=== PATIENT | female | born 1990 | race Caucasian/White ===

== ENCOUNTER 2023-11-28 14:26 | Outpatient (CLI) | payer OTHER ==
--- NOTE | 2023-11-28 17:25 | Ultrasound Report ---
PROCEDURE: Pelvic w/Transvaginal INDICATIONS: POLYCYSITIC OVARIAN SYN TECHNIQUE: Real-time scanning was performed of the pelvic organs, with image documentation. Additional endovagi nal scanning was necessary due to incomplete visualization of the adnexal and endometrial structures by transabdominal scanning. COMPARISON: None. FINDINGS: Uterus: Uterus is anteverted and normal in size at 11.3 x 4.9 x 6.6 cm. The myometrium is homogeneo us. The endometrium measures 21 mm in combined thickness. Ovaries: The right ovary measures 4.5 x 1.8 x 3.2 cm, with a calculated ovarian volume of 13 cc. Th e left ovary measures 4.3 x 2.2 x 2.0 cm, with a calculated ovarian volume of 10 cc. The ovaries hav e a normal sonographic appearance. Greater than 12 follicles can be seen in each ovary. No adnexal masses are seen. No cystic lesions measuring greater than 3 cm. Other: No pathologic free abdominal or pelvic fluid. IMPRESSION: Greater than 12 follicles can be seen in each ovary, which can be seen in the clinical setting of PCO S. Reviewed by: Ranjit Unger MD on 11/28/2023 5:23 PM PST Approved by: Ranjit Unger MD on 11/28/2023 5:23 PM PST Station ID: [id number]
== END 2023-11-28 14:27 | disposition home or self-care (01) ==
LOC: DI 14:26
PROVIDERS: ATTEND Nurse Practitioner
DX: E28.2 Polycystic ovarian syndrome (principal)

== ENCOUNTER 2024-07-13 08:00 | Outpatient (CLI) | payer OTHER | END 2024-07-13 23:59 | disposition home or self-care (01) | LOC: LAB.WC 08:00 | PROVIDERS: ATTEND Nurse Practitioner | DX: N97.0 Female infertility associated with anovulation (principal) | CPT/HCPCS: 84144 ==

== ENCOUNTER 2024-08-06 07:34 | Outpatient (CLI) | payer OTHER | END 2024-08-06 07:35 | disposition home or self-care (01) | LOC: LAB.N 07:34 | PROVIDERS: ATTEND Obstetrics & Gynecology | DX: N97.0 Female infertility associated with anovulation (principal) | CPT/HCPCS: 36415; 82166; 84144; 84146 ==

== ENCOUNTER 2024-08-20 07:45 | Outpatient (CLI) | payer OTHER ==
--- NOTE | 2024-08-20 15:42 | XRAY Report ---
PROCEDURE: Chest 2V INDICATIONS: COUGH,UNSPECIFIED TECHNIQUE: 2 views of the chest were acquired. COMPARISON: None. FINDINGS: Surgical changes and devices: None. Lungs and pleura: Lung volumes are low, but lungs are clear. Mild bilateral perihilar bronchial wall thickening, best seen on the lateral view. No pleural effusions or pneumothorax. Mediastinum: Mediastinal contours appear normal. Heart size is normal. Bones and chest wall: No suspicious bony lesions. Overlying soft tissues appear unremarkable. IMPRESSION: 1.Lung volumes are low with no focal pulmonary consolidation. 2.Mild bilateral perihilar bronchial wall thickening suggestive of reactive airways disease and/or vi ral pneumonia. Reviewed by: OLIVER Longoria on 08/20/2024 3:40 PM PDT Approved by: Sam Hernandez MD on 08/20/2024 3:40 PM PDT Station ID: [id number]
== END 2024-08-20 08:00 | disposition home or self-care (01) ==
LOC: DI.N 07:45
PROVIDERS: ATTEND Nurse Practitioner
DX: R05.9 Cough, unspecified (principal)